=== PATIENT | female | born 1940 | race Caucasian/White ===

== ENCOUNTER 2023-06-14 18:55 | Emergency (ER) | payer MEDICARE ==
[~2023-06-14] VITALS: Ht 160 cm; Wt 64.4 kg
[2023-06-14] MEDS ORDERED: HYDROCODONE/APAP 5/325MG TABLET PO ONE (21:30)
[2023-06-14] MEDS ORDERED: HYDROCODONE/APAP 5/325MG TABLET ONE (21:39)
[2023-06-14 22:21] VITALS: BP 172/63; TEMP 98.1; O2SAT 99
== END 2023-06-14 22:16 | disposition home or self-care (01) ==
LOC: ER 19:00
DX: S62.616A Displaced fracture of proximal phalanx of right little finger, initial encounter for closed fracture (principal); S00.11XA Contusion of right eyelid and periocular area, initial encounter; I10 Essential (primary) hypertension; W01.0XXA Fall on same level from slipping, tripping and stumbling without subsequent striking against object, initial encounter; Y93.89 Activity, other specified; Y92.89 Other specified places as the place of occurrence of the external cause; Y99.8 Other external cause status
CPT/HCPCS: 70450-TC; 73110; 73130-TC; 73140-TC